=== PATIENT | male | born 1985 | race Caucasian/White ===

== ENCOUNTER → 2017-01-14 | Outpatient (CLI) | payer OTHER, SELFPAY ==
--- NOTE | 2017-01-14 17:29 | REP ---
Posterior fossa and brain IAC MRI study without and with IV gadolinium: History: History of left ear sensorineural hearing loss. Comparison radiographs of the sinuses are from June 28, 2015. Gadolinium enhancement dose: 18 ml of intravenous ProHance. MR technique: Axial and coronal T1 and T2-weighted scans include spin echo, turbo spin echo, FLAIR, and diffusion weighted scans. 3-D gradient echo sequences are included and post gadolinium enhanced T1 fat sat axial and coronal scans are included. MRI findings: No bony calvarial lesion is seen. There is no MR evidence of significant paranasal sinus disease. No intraorbital abnormality is seen. The internal auditory canals are normal and symmetric in size. 7th and 8th nerves are unremarkable. No other cranial nerve abnormality is appreciated. There is no evidence of CP angle cistern mass. No intercanalicular or extra canalicular abnormal gadolinium enhancement is seen. Enhancement is seen in normal vessels. No abnormal gadolinium enhancement is appreciated. Diffusion weighted scans show no evidence to suggest acute ischemia. Impression: Unremarkable IAC, posterior fossa, and brain MRI study without and with IV gadolinium. Signed by Noman Scott MD 01/14/2017 05:49 P
== END ==
LOC: M RAD 14:55
PROVIDERS: ATTEND Otolaryngology
DX: H90.5 Unspecified sensorineural hearing loss (principal)
CPT/HCPCS: 70553; A9576

== ENCOUNTER → 2020-12-18 | Outpatient (CLI) | payer OTHER ==
[2020-12-18 19:19] LABS: FREE T4 0.99 NG/DL (0.76-1.46); THYROID STIMULATING HORMONE 1.68 uIU/ML (0.358-3.740)
== END ==
LOC: M LAB 16:38
PROVIDERS: ATTEND Internal Medicine Gastroenterology
DX: K58.2 Mixed irritable bowel syndrome (principal)

== ENCOUNTER → 2021-04-07 | Outpatient (CLI) | payer OTHER ==
[~2021-04-07] MED LIST: DICY20TA11 PO
== END ==
LOC: M LABSMTC 09:33
PROVIDERS: ATTEND Anesthesiology
DX: Z01.812 Encounter for preprocedural laboratory examination (principal); Z20.822 Contact with and (suspected) exposure to COVID-19

== ENCOUNTER 2021-04-11 10:19 | Day surgery (SDC) | payer OTHER ==
[~2021-04-11] VITALS: Ht 180.3 cm; Wt 99.3 kg
[~2021-04-11 10:19] MED LIST changes: +NS 1,000 ML IV ONE
--- OUTSIDE RECORDS SUMMARY | 2021-04-11 10:23 | CCD | Continuity of Care Document ---
Author Author Jonah VILLA [facility] Organization Unknown Address [address] [facility] [address] [place] [address] Phone [phone] Problems Active Problems Provider Date Allergic rhinitis Melva Santillan FNP-C Onset: Social History Type Date Description Comments Sex Unknown Tobacco Use Start: Unknown End: Unknown Former Cigarette Smo ker 1/2 Pack Daily ETOH Use Consumes 4 beers per week Recreational Drug Use Denies Drug Use Tobacco Use Start: Unknown Light tobacco smoker (10 or fewe r cigarettes/day) Allergies, Adverse Reactions, Alerts Description No Known Drug Allergies Medications Active Medications SIG Qnty Indications Ordering Provide r Date Hydrocortisone 2.5% Ointment apply topically hemorrhoids twice daily X 14 days 30gm Fanny Bolden FNP-BC 09/04/2020 Zyrtec Allergy 10mg Tablets 1 by mouth every night at bedtime 30tabs Fanny Villa FNP-BC Ibuprofen 200mg Tablets 3 tabs by mouth qd OTC Unknown Immunizations Description No Information Available Vital Signs Date Vital Result Comment 01/07/2021 11:39am BP Systolic 124 mmHg BP Diastolic 66 mmHg Body Temperature 97.8 F Heart Rate 95 /min Respiratory Rate 16 /min Height 68.50 inches 5'8.50" Weight 220.00 lb [place] Body Weight 154 lb BMI (Body Mass Index) 33.0 kg/m2 O2 % BldC Oximetry 98 % (AT Rest), (Room Air ) 12/30/2020 3:47pm BP Systolic 118 mmHg BP Diastolic 72 mmHg Body Temperature 97.6 F Heart Rate 94 /min Respiratory Rate 16 /min Height 68.50 inches 5'8.50" Weight 217.00 lb [place] Body Weight 154 lb BMI (Body Mass Index) 32.5 kg/m2 O2 % BldC Oximetry 97 % Results Test Acquired Date Facility Test Result H/L Range Note Gastrointestinal (GI) Panel 12/18/2020 [facility] dical (Interface) [phone] Gastrointestinal (GI) Panel This Gastrointes <SEE NOTE > 1 Laboratory test finding 12/18/2020 [facility] (Interface) [phone] Pancreatic Elastase Stool 309 Normal >200 2 Calprotectin Stool 20 ug/g Normal 0-120 3 Laboratory test [facility] [phone] Immunoglobulin A 149.0 mg/dL Normal 70-400 FT4&TSH Panel 12/18/2020 [facility] (I nterface) [phone] Thyroid Stimulating Hormone 1.680 uIU/ML Normal 0. 358-3.740 Free T4 0.99 ng/dL Normal 0.76-1.46 Laboratory test finding [facility] [phone] Tissue Transglutaminase IgA <2 U/mL Normal 0-3 4 Laboratory test finding 09/04/2020 [facility] Occult Blood NEGATIVE Neg 1 This Gastrointestinal PCR Pa wendy detects the following bacteria, parasites and viruses: Campylobacter (jejuni, coli and upsaliensis), Clostridium difficile (toxin A/B), Plesiomonas shigelloides, Salmonella, Yersinia enterocolitica, Vibrio (parahaemolyticus, vulnificus and cholerae), Vibrio clolerae, Enteroaggregative E. coli (EAEC), Enteropathogenis E. coli (EPEC), Enterotoxigenic E. coli (ETEC) it/st, Shiga-like producing E. coli (STEC) stx1/stc2, E.coli O157, Shigella/Enteroinvasive E. coli (EIEC), Cryptosporidium, Cyclospora cayetanensis, Entamoeba histolytica, Giardia lamblia, Adenovirus F 40/41, Astrovirus, Norovirus GI/GII, Rotavirus A and Sapovirus (I, II, IV, V). One negative specimen does not rule out the possibility of a parasitic infection. NEGATIVE by MULTIPLEXED NUCLEIC ACID PCR 2 Result Units: ug Elast./g Severe Pancreatic Insufficiency: <100 Moderate Pancreatic Insufficiency: 100 - 200 Normal: >200 3 Concentration Interpreta tion Follow-Up <16 - 50 ug/g Normal None >50 -120 ug/g Borderline Re-evaluate in 4-6 weeks >120 ug/g Abnormal Repeat as clinically indicated Performed at: [facility] [id number] Offal Worker: Elina Maya MD, Phone: [phone] Negative 0 - 3 Weak Positive 4 - 10 Positive >10 . Tissue Transglutaminase (tTG) has been identified as the endomysial antigen. Studies have demonstr- ated that endomysial IgA antibodies have over 99% specificity for gluten sensitive enteropathy. Performed at: [facility] [id number] Offal Worker: Sangeeta Hair MD, Phone: [phone] Procedures Date Code Description Status 01/07/2021 89159 Destruction Common/P lantar Warts 1-14 EX. Common Or Plantar Warts Completed 12/30/2020 46575 Office/Outpatient Established Lo w MDM 20-29 Min Completed 09/04/2020 42125 Office/Outpatient Established Mo d MDM 30-39 Min Completed Medical Devices Description No Information Available Encounters Type Date Location Provider Dx Diagnosis Office Visit 12/30/2020 3:30p [place] FNP-BC B07.9 Viral wart, unspecified Office Visit 09/04/2020 11:15a [place] FNP-BC R19.7 Diarrhea, unspecified K59.00 Constipation, unspecified K64.8 Other hemorrhoids Assessments Date Code Description Provider 01/07/2021 B07.9 Viral wart, unspecified Fanny Villa FNP-BC 12/30/2020 B07.9 Viral wart, unspecified Fanny Villa FNP-BC 09/04/2020 R19.7 Diarrhea, unspecified Red Villa FNP-BC 09/04/2020 K59.00 Constipation, unspecified Fanny Villa FNP-BC 09/04/2020 K64.8 Other hemorrhoids Fanny Villa FNP-BC Plan of Treatment No Information Available Functional Status Description No Information Available Mental Status Description No Information Available Referrals Refer to Reason for Referral Status Appt Date Nathaniel Renner M.D. bowel issues hemorrhoids Sent 0 12/18/[address] [address] [phone]
--- OUTSIDE RECORDS SUMMARY | 2021-04-11 10:23 | CCD | Continuity of Care Document ---
Author Jonah Burkett MD Organization Unknown Address [address] [place] [address] Phone [phone] Care Team Providers Care Shake Loader Name Role Phone oRdri Linton D.O. AUTM [phone] Jaimee Morrison AUTM [phone] Problems Active Problems Provider Date Dysfunction of eustachian tube Steve Hardy II, PA-C Onset: 08/28/2013 Hypertrophy of tonsils Stvee Hardy II, PA-C Onset: 08/29/19 14 Acute sinusitis Steve Hardy II, PA-C Onset: 08/28/2013 Sensorineural hearing loss Steve Hardy II, PA-C Onset: 10/30 Social History Type Date Description Comments Sex Unknown ETOH Use Occasionally consumes alcohol Tobacco Use Start: Unknown Patient is a current smoker, smo kes every day <1/2ppd Allergies, Adverse Reactions, Alerts Active Allergies Criticality Reaction | Severity Comments Date Peanut-containing Drug Products Unable to assess criticality 06/09/2013 Medications Active Medications SIG Qnty Indications Ordering Provide r Date Miralax 17GM/Scoop Powder use as directed see dr howell colon preparation instructions 510gm K58.2 Yury Howell MD 12/18/2020 Dicyclomine HCL 20mg Tablets take 1 tablet by mouth 4 times a day as needed (1/2 hour before meal) for abdominal pain/diarrhea/spasm 60tabs K58.2 Ena Howell MD 12/18/2020 Metamucil 0.52gm Capsules 2 by mouth twice a day 120caps K58.2 Ena Howell MD 12/18/2020 Milk Of Magnesia 1200mg/15ML Suspe nsion take 45 milliliters by mouth as directed on colonoscopy prep sheet. 355ml Ena Howell MD 12/18/2020 History Medications No Active Medications Unknown - 12/18/2020 Immunizations Description No Information Available Vital Signs Date Vital Result Comment 12/18/2020 3:29pm BP Systolic 114 mmHg BP Diastolic 62 mmHg Height 71 inches 5'11" Weight 218.00 lb BMI (Body Mass Index) 30.4 kg/m2 [place] Body Weight 172 lb Weight 98.885 kg BSA (Body Surface Area) 2.19 m2 09/28/2019 9:10am Height 71 inches 5'11" Weight 220.00 lb BMI (Body Mass Index) 30.7 kg/m2 [place] Body Weight 172 lb Weight 99.792 kg BSA (Body Surface Area) 2.20 m2 Results Test Acquired Date Facility Test Result H/L Range Note Laboratory test finding 12/18/2020 [facility] [address] [place] [address] [phone] Tissue Transglutaminase IgA <2 U/mL Normal 0-3 1 Immunoglobulin A 149.0 mg/dL Normal 70-400 FT4&TSH Panel 12/18/2020 [facility] nter Main Lab [address] [place] [address] [phone] Thyroid Stimulating Hormone 1.680 uIU/ML Normal 0. 358-3.740 Free T4 0.99 ng/dL Normal 0.76-1.46 2 Gastrointestinal (GI) Panel 12/18/2020 [facility] Main Lab [address] [place] [address] [phone] Gastrointestinal (GI) Panel This Gastrointes <SEE NOTE > 3, 4 Laboratory test finding 12/18/2020 [facility] [address] [place] [address] [phone] Calprotectin Stool 20 ug/g Normal 0-120 5 Pancreatic Elastase Stool 309 Normal >200 6, 7 1 Negative 0 - 3 Weak Positive 4 - 10 Positive >10 . Tissue Transglutaminase (tTG) has been identified as the endomysial antigen. Studies have demonstr- ated that endomysial IgA antibodies have over 99% specificity for gluten sensitive enteropathy. Performed at: [address] [id number] Geothermal Operating Engineer: Sangeeta Hair MD, Phone: [phone] 2 12/22/20 ([place] Dec 22) 06:31 PM ENA HOWELL ok 3 This Gastrointestinal PCR Pa wendy detects the [...] infection. NEGATIVE by MULTIPLEXED NUCLEIC ACID PCR 4 12/22/20 ([place] Dec 22) 06:53 PM ENA HOWELL neg 5 Concentration Interpreta tion Follow-Up <16 - 50 ug/g Normal None >50 -120 ug/g Borderline Re-evaluate in 4-6 weeks >120 ug/g Abnormal Repeat as clinically indicated Performed at: [address] [id number] Geothermal Operating Engineer: Elina Maya MD, Phone: [phone] Result Units: ug Elast./g Severe Pancreatic Insufficiency: <100 Moderate Pancreatic Insufficiency: 100 - 200 Normal: >200 7 02/27/21 ([place] Feb 27) 04:14 PM ENA HOWELL normal Procedures Date Code Description Status 12/18/2020 86347 Office/Outpatient New Moderate M DM 45-59 Minutes Completed Medical Devices Description No Information Available Encounters Type Date Location Provider Dx Diagnosis Office Visit 12/18/2020 3:15p [facility] Ena Howell MD K58.2 Mixed irritable bowel syndro me K62.5 Hemorrhage of anus and rectu m Assessments Date Code Description Provider 12/18/2020 K58.2 Mixed irritable bowel syndrome D kamryn Howell MD 12/18/2020 K62.5 Hemorrhage of anus and rectum Da grace Howell MD Plan of Treatment Future Appointment(s):* 04/11/2021 1:05 pm - Ena Howell MD at [facility] 12/18/2020 - Ena Howell MD* K58.2 Mixed irritable bowel syndrome * K62.5 Hemorrhage of anus and rectum * * New Medication:* Miralax 17 GM/Scoop * Dicyclomine HCL 20 mg * Metamucil 0.52 gm * New Orders:* Colonoscopy, Ordered: 12/18/20 * Comments:* has long hx of hemorrhoidal problems.Has several days of normal bowels, then has freequent stools, then has bleeding with stool frequency/frequent wiping. * Recommendations:* Fiber supplementation to reduce stool frequency Trial on dicyclomine ofr probable IBS contributing. Colonoscopy to assess. Dep on colonoscopy, consider surgical repair of hemorrhoids Functional Status Description No Information Available Mental Status Description No Information Available Referrals Refer to Reason for Referral Status Appt Date Ena Howell M.D. CONSTIPATION/DIARRHEA Scheduled 12/18 [facility], Gastroenterology [address] [place] [address], [address] [place], [place] [id number] [phone]
--- OUTSIDE RECORDS SUMMARY | 2021-04-11 10:24 | CCD ---
Author Author [facility] Organization [facility] Address Unknown Phone Unavailable Care Team Providers Care Intensive Care Nurse Name Role Phone ENA UMAÑA MD Unavailable Unavailable ENA UMAÑA MD Unavailable Unavailable ENA UMAÑA MD Unavailable Unavailable ENA UMAÑA MD Unavailable Unavailable ENA UMAÑA MD Unavailable Unavailable ENA UMAÑA MD Unavailable Unavailable ENA UMAÑA MD Unavailable Unavailable ENA UMAÑA MD Unavailable Unavailable ENA UMAÑA MD Unavailable Unavailable ENA UMAÑA MD Unavailable Unavailable ENA UMAÑA MD Unavailable Unavailable ENA UMAÑA MD Unavailable Unavailable ENA UMAÑA MD Unavailable Unavailable ENA UMAÑA MD Unavailable Unavailable ENA UMAÑA MD Unavailable Unavailable ENA UMAÑA MD Unavailable Unavailable ENA UMAÑA MD Unavailable Unavailable ENA UMAÑA MD Unavailable Unavailable ENA UMAÑA MD Unavailable Unavailable ENA UMAÑA MD Unavailable Unavailable REINDL, ENA HINKLE Unavailable Unavailable REINDL, ENA HINKLE Unavailable Unavailable REINDL, ENA HINKLE Unavailable Unavailable REINDL, ENA HINKLE Unavailable Unavailable REINDL, ENA HINKLE Unavailable Unavailable REINDL, ENA HINKLE Unavailable Unavailable REINDL, ENA HINKLE Unavailable Unavailable REINDL, ENA HINKLE Unavailable Unavailable REINDL, ENA HINKLE Unavailable Unavailable REINDL, ENA HINKLE Unavailable Unavailable REINDL, ENA HINKLE Unavailable Unavailable REINDL, ENA HINKLE Unavailable Unavailable REINDL, ENA HINKLE Unavailable Unavailable REINDL, ENA HINKLE Unavailable Unavailable REINDL, ENA HINKLE Unavailable Unavailable REINDL, ENA HINKLE Unavailable Unavailable REINDL, ENA HINKLE Unavailable Unavailable REINDL, ENA HINKLE Unavailable Unavailable REINDL, ENA HINKLE Unavailable Unavailable REINDL, ENA HINKLE Unavailable Unavailable REINDL, ENA HINKLE Unavailable Unavailable REINDL, ENA HINKLE Unavailable Unavailable Rounds, [facility] Unavailable Unavailable Rounds, [facility] Unavailable Unavailable Rounds, [facility] Unavailable Unavailable Rounds, [facility] Unavailable Unavailable Rounds, [facility] Unavailable Unavailable Rounds, [facility] Unavailable Unavailable Rounds, [facility] Unavailable Unavailable Rounds, [facility] Unavailable Unavailable Rounds, [facility] Unavailable Unavailable Rounds, [facility] Unavailable Unavailable Rounds, [facility] Unavailable Unavailable Rounds, [facility] Unavailable Unavailable Rounds, [facility] Unavailable Unavailable Rounds, [facility] Unavailable Unavailable Rounds, [facility] Unavailable Unavailable Rounds, [facility] Unavailable Unavailable Rounds, [facility] Unavailable Unavailable Rounds, [facility] Unavailable Unavailable Rounds, [facility] Unavailable Unavailable Rounds, [facility] Unavailable Unavailable Rounds, [facility] Unavailable Unavailable Rounds, [facility] Unavailable Unavailable Rounds, [facility] Unavailable Unavailable Rounds, [facility] Unavailable Unavailable Rounds, [facility] Unavailable Unavailable Rounds, [facility] Unavailable Unavailable Rounds, [facility] Unavailable Unavailable Rounds, [facility] Unavailable Unavailable Rounds, [facility] Unavailable Unavailable Rounds, [facility] Unavailable Unavailable Rounds, [facility] Unavailable Unavailable Rounds, [facility] Unavailable Unavailable Rounds, M [facility] Unavailable Unavailable Rounds, [facility] Unavailable Unavailable Rounds, [facility] Unavailable Unavailable Rounds, M [facility] Unavailable Unavailable Rounds, M [facility] Unavailable Unavailable Rounds, [facility] Unavailable Unavailable Rounds, M [facility] Unavailable Unavailable Rounds, [facility] Unavailable Unavailable Rounds, [facility] Unavailable Unavailable Rounds, [facility] Unavailable Unavailable Rounds, [facility] Unavailable Unavailable Rounds, [facility] Unavailable Unavailable Rounds, M [facility] Unavailable Unavailable Rounds, M [facility] Unavailable Unavailable Rounds, M [facility] Unavailable Unavailable Rounds, M [facility] Unavailable Unavailable Rounds, M [facility] Unavailable Unavailable Rounds, M [facility] Unavailable Unavailable Rounds, M [facility] Unavailable Unavailable Rounds, M [facility] Unavailable Unavailable Rounds, M [facility] Unavailable Unavailable Rounds, M [facility] Unavailable Unavailable Rounds, M [facility] Unavailable Unavailable Rounds, M [facility] Unavailable Unavailable Rounds, M [facility] Unavailable Unavailable Rounds, M [facility] Unavailable Unavailable Rounds, M [facility] Unavailable Unavailable Rounds, M [facility] Unavailable Unavailable Rounds, [facility] Unavailable Unavailable Rounds, [facility] Unavailable Unavailable Rounds, [facility] Unavailable Unavailable Re-disclosure Warning The records that you are about to access may contain information from federally-assisted alcohol or drug abuse programs. If such information is present, then the following federally mandated warning applies: This information has been disclosed to you from records protected by federal confidentiality rules (42 CFR part 2). The federal rules prohibit you from making any further disclosure of this information unless further disclosure is expressly permitted by the written consent of the person to whom it pertains or as otherwise permitted by 42 CFR part 2. A general authorization for the release of medical or other information is NOT sufficient for this purpose. The Federal rules restrict any use of the information to criminally investigate or prosecute any alcohol or drug abuse patient.The records that you are about to access may contain highly sensitive health information, the redisclosure of which is protected by Article 27-F of the [facility] Public Health law. If you continue you may have access to information: Regarding HIV / AIDS; Provided by facilities licensed or operated by the [facility] Office of Mental Health; or Provided by the [facility] Office for People With Developmental Disabilities. If such information is present, then the following [facility] mandated warning applies: This information has been disclosed to you from confidential records which are protected by state law. State law prohibits you from making any further disclosure of this information without the specific written consent of the person to whom it pertains, or as otherwise permitted by law. Any unauthorized further disclosure in violation of state law may result in a fine or longterm sentence or both. A general authorization for the release of medical or other information is NOT sufficient authorization for further disc losure. Family History Family Member Name Family Member Gender Family Member Status Date o f Status Description Data Source(s) Unknown Condition [facility] Unknown Condition [facility] Unknown Condition [facility] Unknown Unknown Problem [facility] ([facility], ) Encounters Encounter Providers Location Date Indications Data Source(s ) Outpatient Attender: KUSHAL Villa NP [place] [facility] 12/30/2020 0 3:30:00 PM EDT [facility] Outpatient Attender: ENA Galindo/Mahsa/Reed/Sanket heaton 12/18/2020 03:15:00 PM EDT [facility] ([facility], ) Outpatient 09/30/2020 05:15:00 PM EDT [facility] Outpatient 09/23/2020 05:30:00 PM EDT - 021 06:11:38 PM EDT [facility] Patient discharged. Outpatient Attender: KUSHAL Villa NP [place] [facility] 09/04/2020 1 1:15:00 AM EDT [facility] ([facility] Outpatient 08/12/2020 02:15:00 PM EDT [facility] Outpatient 08/12/2020 02:15:00 PM EDT [facility] Outpatient 08/08/2020 02:45:00 PM EST [facility] Outpatient 08/08/2020 01:00:00 PM EST [facility] Outpatient 03/11/2020 03:40:00 PM EDT [facility] Outpatient 03/04/2020 05:00:00 PM EDT [facility] Emergency 12/19/2019 09:11:00 PM EDT - 12/19/2019 10:50:00 PM EDT [facility] Patient discharged. Medications Medication Brand Name Start Date Product Form Dose Route Admi nistrative Instructions Pharmacy Instructions Status Indications Reaction Description Data Source(s) POLYETHYLENE GLYCOL 3350 142 MG/ML Oral Solution [Miralax] M iralax 12/18/2020 12:00:00 AM EDT active M [facility]ENT ([facility], ) Dicyclomine Hydrochloride 20 MG Oral Tablet Dicyclomine HCL 12/18/2020 12:00:00 AM EDT ORAL active [facility] ([facility], ) 0.52 gram 12/18/2020 12:00:00 AM EDT capsule 120 TAKE TWO CAPSULES BY MOUTH TWICE A DAY TAKE TWO CAPSULES BY MOUTH TWICE A DAY SOLD: 12/18/2020 Last [facility] Magnesium Hydroxide 80 MG/ML Oral Suspension Milk Of Magnesi a 12/18/2020 12:00:00 AM EDT ORAL active M EDENT ([facility], ) No Active Medications 12/18/2020 12:00:00 AM EDT completed [facility] ([facility], ) Psyllium 525 MG Oral Capsule [Metamucil] Metamucil 12/18/2020 12 :00:00 AM EDT ORAL active [facility] ([facility], ) 17 gram/dose 12/18/2020 12:00:00 AM EDT powder [address] UMAÑA PREPERATION INSTRUCTIONS USE DIRECTED. SEE DR. UMAÑA PREPERAT ION INSTRUCTIONS SOLD: 12/18/2020 Last Drug s 20 mg 12/18/2020 12:00:00 AM EDT tablet 60 TAKE 1 TABLET FOUR TIMES A DAY NEEDED (1/2 HOUR BEFORE MEALS) FOR ABDOMINAL PAIN/ DIARRHEA/ SPASMS TAKE 1 TABLET FOUR TIMES A DAY NEEDED (1/2 HOUR BEFORE MEALS) FOR ABDOMINAL PAIN/ DIARRHEA/ SPASMS SOLD: 12/23/2020 [facility] Aspirin 81 MG Delayed Release Oral Tablet aspirin stefano yed-release 81 mg tablet aspirin delayed-release 81 mg tablet 09/23/2020 12:00:00 AM EDT 81 mg Oral active Coronary artery disease invo lving [place] coronary artery of [place] heart without angina pectoris Take 1 Tab by mouth daily. Wilfredo davila [facility] Coronary artery disease involving [place] coronary artery of [place] heart without angina pectoris Amlodipine 5 MG Oral Tablet amLODIPine (NORVASC) 5 mg tablet amLODIPine (NORVASC) 5 mg tablet 09/23/2020 12:00:00 AM EDT 5 mg Oral active Essential hypertension Take 1 Tab by mouth daily. [facility] Essential hypertension 24 HR metoprolol succinate 50 MG Extende d Release Oral Tablet metoprolol succinate (Toprol XL) 50 mg XL tablet metoprolol succinate (Toprol XL) 50 mg X L tablet 09/23/2020 12:00:00 AM EDT 50 mg Oral activ e Essential hypertensionCoronary artery disease involving [place] coronary artery of [place] heart without angina pectoris Take 1 Tab by mouth daily. [facility] Essential hypertension Coronary artery disease involving [place] coronary artery of [place] heart without angina pectoris atorvastatin 80 MG Oral Tablet atorvastatin (LIPITOR) 80 mg tablet atorvastatin (LIPITOR) 80 mg tablet 09/23/2020 12:00:00 AM EDT 80 mg Oral active Mixed hyperlipidemia Take 1 Tab by mouth daily. [facility] Mixed hyperlipidemia Hydrocortisone 0.025 MG/MG Topical Ointment Hydrocortisone 09/04/2020 12:00:00 AM EDT active [facility] ([facility] 24 HR metoprolol succinate 100 MG Extend ed Release Oral Tablet metoprolol succinate (TOPROL-XL) 100 mg tablet metoprolol succinate (TOPROL-XL) 100 mg tablet 02/20/2020 12:00:00 AM EDT activ e Essential hypertensionCoronary artery disease involving [place] coronary artery of [place] heart without angina pectoris TAKE 1 TABLET BY MOUTH EVERY D AY [facility] Essential hypertension Coronary artery disease involving [place] coronary artery of [place] heart without angina pectoris Insurance Providers Payer name Policy type / Coverage type Policy ID Covered alliance party ID Covered alliance party's relationship to figueroa Policy Figu[place]a Plan Information MOTHER EZEQUIEL UNAVAILABLE Patient UNAVAILABLE BCBS OF [place] [id number] Patient [id number] BLUE CROSS OUT OF STATE [id number] Patient [id number] [facility] [id number] SP [id number] [facility]UN[facility] [id number] SP [id number] [facility] COMMUNITY PLAN MCDO [id number] SP [id number] SELF PAY ONLY [id number] SP [id number] [facility] COMMUNITY PLAN MCDO [id number] SP [id number] [facility] [id number] SP [id number] [facility] COMMUN[facility] [id number] SP [id number] ROGELIO [id number] ROGELIO [id number] ROGELIO [id number] 200 [place] ROGELIO [id number] ROGELIO [id number] 200 GENERIC COMMERCIAL [id number] N [id number] GENERIC COMMERCIAL Commerical [id number] SELF PAY Self Pay [id number] TIFFANI GARZA [id number] [place] [employer] [id number] [place] [employer] Commerical [id number] BLUE CROSS BLUE SHIELD -O/P [id number] [employer] COMMUNITY PLAN MCDO [id number] SP [id number] ROGELIO [id number] SP [id number] ROGELIO [id number] SP [id number] INDEPENDENCE [id number] U [id number] [place]BS [place] WATN PPO 302/307 [id number] SP [id number] [facility] [id number] SP [id number] UNHC AMERICHOICE XIX O [id number] 18 [id number] UNHC COMMUNITY PLAN XIX -RECURRING [id number] 18 [id number] UNHC COMMUNITY PLAN XIX [id number] 18 [id number] [facility] Ernestina/MCR Medigap Part B [id number] Self [id number] [facility] Ernestina/MCR Health Maintenance Organization (HMO) [id number] Self [id number] [facility] Medigap Part B [id number] Self [id number] [facility] O [id number] S [id number] [facility] Ernestina/MCR Medigap Part B [id number] Self [id number] [facility] Health Maintenance Organization (HMO) [id number] Self [id number] GENERIC COMMERCIAL [id number] N [id number] [employer] [employer] [id number] Problems, Conditions, and Diagnoses Code Display Name Description Problem Type Effective Dates Data Source(s) E78.2 Mixed hyperlipidemia Mixed hyperlipidemia Diagnosis 09/23/2020 05:39:09 PM EDT [facility] I10 Essential (primary) hypertension Essential (primary) h ypertension Diagnosis 09/23/2020 05:39:09 PM EDT [facility] Surgeries/Procedures Procedure Description Date Indications Data Source(s) Destruction Common/Plantar Warts 1-14 EX. Common Or Plantar Warts 01/07/2021 12:00:00 AM EDT [facility] ([facility] OFFICE OUTPATIENT VISIT 15 MINUTES 12/30/2020 12:00:00 AM EDT [facility] ([facility] OFFICE OUTPATIENT NEW 45 MINUTES 12/18/2020 12:00:00 A M EDT [facility] ([facility], ) AMB POC EKG ROUTINE W/ 12 LEADS, INTER & REP <td><cont ent ID="[id number]">AMB POC EKG ROUTINE W/ 12 LEADS, INTER & REP</content></td><td>Routine</td><td>09/23/2020 5:47 PM EDT</td><td><paragraph>Coronary artery disease involving [place] coronary artery of [place] heart without angina pectoris</paragraph><paragraph>Essential hypertension</paragraph></td><td></td> 09/23/2020 05:47:00 PM EDT Essential hypertensionCoronary artery disease involving [place] coronary artery of [place] heart without angina pectoris [facility] Essential hypertension Coronary artery disease involving [place] coronary artery of [place] heart without angina pectoris OFFICE OUTPATIENT VISIT 25 MINUTES 09/04/2020 12:00:00 AM EDT [facility] ([facility] Results ID Date Data Source [id number] 12/18/2020 10:15:00 PM EDT [facility] ([facility] Name Value Range Interpretation Code Description Data Vivian rce(s) Supporting Document(s) Elastase.pancreatic [Mass/mass] in Stool 309 Normal (applies to non-numeric results) [facility] ([facility] ) <content>Result Units: ug Elast./g</cont ent>
<content>Severe Pancreatic Insufficiency: <100</content>
<content>Moderate Pancreatic Insufficiency: 100 - 200</content>
<content>Normal: >200</content>
<content></content> Calprotectin [Mass/mass] in Stool 20 ug/g 0-120 Normal (applies to non-numeric results) [facility] ([facility] ) <content>Concentration Interpretatio n Follow-Up</content>
<content><16 - 50 ug/g Normal None</content>
<content>>50 -120 ug/g Borderline Re-evaluate in 4-6 weeks</content>
<content>>120 ug/g Abnormal Repeat as clinically</content>
<content>indicated</content>
<content>Performed at: [facility]</content>
<content>[address] [place] [id number]</content>
<content>Dining Service Inspector: Elina Maya MD, Phone: [phone]</content>
<content></content> ID Date Data Source [id number] 12/18/2020 10:15:00 PM EDT [facility] ([facility] Name Value Range Interpretation Code Description Data Vivian rce(s) Supporting Document(s) Gastrointestinal (GI) Panel Laboratory test result [facility] ([facility] This Gastrointestinal PCR Panel detects the following bacteria, parasites and viruses: [...] infection. NEGATIVE by MULTIPLEXED NUCLEIC ACID PCR ID Date Data Source [id number] 12/18/2020 04:52:00 PM EDT [facility]) Name Value Range Interpretation Code Description Data Vivian rce(s) Supporting Document(s) Free T4 0.99 ng/dL 0.76-1.46 Normal (applies to non-numeric resul ts) [facility] ([facility]) 12/22/20 (WedDec 22) 06:31 PM ENA BRO ok Thyroid Stimulating Hormone 1.680 uIU/ML 0.358-3.740 Norm al (applies to non- numeric results) [facility]) ID Date Data Source [id number] 12/18/2020 04:52:00 PM EDT [facility] ([facility]) Name Value Range Interpretation Code Description Data Vivian rce(s) Supporting Document(s) Tissue transglutaminase IgA Ab [Units/volume] in Serum Labor atory test result 0-3 Normal (applies to non-numeric results) [facility] ([facility]) Negative 0 - 3 Weak Positive 4 - 10 Positive >10 . Tissue Transglutaminase (tTG) has been identified as the endomysial antigen. Studies have demonstr- ated that endomysial IgA antibodies have over 99% specificity for gluten sensitive enteropathy. Performed at: [facility] [address] [id number] Dining Service Inspector: Sangeeta Hair MD, Phone: [phone] IgA [Mass/volume] in Serum or Plasma 149.0 mg/dL 70-400 Normal (applies to non- numeric results) [facility] ([facility], ) ID Date Data Source [id number] 12/18/2020 04:52:00 PM EDT [facility] ([facility] Name Value Range Interpretation Code Description Data Vivian rce(s) Supporting Document(s) Tissue transglutaminase IgA Ab [Units/volume] in Serum Labor atory test result 0-3 Normal (applies to non-numeric results) [facility] ([facility] Negative 0 - 3 Weak Positive 4 - 10 Positive >10 . Tissue Transglutaminase (tTG) has been identified as the endomysial antigen. Studies have demonstr- ated that endomysial IgA antibodies have over 99% specificity for gluten sensitive enteropathy. Performed at: RN - [facility] [address] [id number] Dining Service Inspector: Sangeeta Hair MD, Phone: [phone] ID Date Data Source [id number] 12/18/2020 04:52:00 PM EDT [facility] ([facility] Name Value Range Interpretation Code Description Data Vivian rce(s) Supporting Document(s) Free T4 0.99 ng/dL 0.76-1.46 Normal (applies to non-numeric resul ts) [facility] ([facility] Thyroid Stimulating Hormone 1.680 uIU/ML 0.358-3.740 Norm al (applies to non- numeric results) [facility] ([facility] ) ID Date Data Source [id number] 12/18/2020 04:52:00 PM EDT [facility] ([facility] Name Value Range Interpretation Code Description Data Vivian rce(s) Supporting Document(s) IgA [Mass/volume] in Serum or Plasma 149.0 mg/dL 70-400 Normal (applies to non- numeric results) [facility] ([facility] ) ID Date Data Source [id number] 12/18/2020 08:52:00 AM EDT [facility] ([facility]) Name Value Range Interpretation Code Description Data Vivian rce(s) Supporting Document(s) Calprotectin [Mass/mass] in Stool 20 ug/g 0-120 Normal (applies to non-numeric results) [facility] ([facility]) <content>Concentration Interpretatio n Follow-Up</content>
<content><16 - 50 ug/g Normal None</content>
<content>>50 -120 ug/g Borderline Re-evaluate in 4-6 weeks</content>
<content>>120 ug/g Abnormal Repeat as clinically</content>
<content>indicated</content>
<content>Performed at: [facility]</content>
<content>[address] [place] [id number]</content>
<content>Dining Service Inspector: Elina Maya MD, Phone: [phone]</content>
<content></content> Elastase.pancreatic [Mass/mass] in Stool 309 Normal (applies to non-numeric results) [facility] ([facility]) <content>Result Units: ug Elast./g</cont ent>
<content>Severe Pancreatic Insufficiency: <100</content>
<content>Moderate Pancreatic Insufficiency: 100 - 200</content>
<content>Normal: >200</content>
<content></content> ID Date Data Source [id number] 12/18/2020 08:52:00 AM EDT [facility] ([facility]) Name Value Range Interpretation Code Description Data Vivian rce(s) Supporting Document(s) Gastrointestinal (GI) Panel Laboratory test result [facility] ([facility]) This Gastrointestinal PCR Panel detects the following bacteria, parasites and viruses: [...] infection. NEGATIVE by MULTIPLEXED NUCLEIC ACID PCR ID Date Data Source [id number] 09/04/2020 11:44:00 AM EDT JOCELINE ([facility] Name Value Range Interpretation Code Description Data Vivian rce(s) Supporting Document(s) Occult Blood Laboratory test result JOCELINE ([facility] [place] [facility] Procedure Social History Code Duration Value Status Description Data Source(s ) Alcohol intake 09/23/2020 12:00:00 AM EDT Current non-d marina of alcohol (finding) completed Current non-drinker of alcohol (finding) [employer] Tobacco use and exposure 09/23/2020 12:00:00 AM EDT Never used co mpleted Never used [employer] Cigarettes smoked current (pack per day) - Reported 09/24/19 12:00:00 AM EDT UNK completed [facility] Smoking 09/23/2020 12:00:00 AM EDT Former smoker completed Former smoker [facility] Vital Signs ID Date Data Source UNK Name Value Range Interpretation Code Description Data Source(s) Body weight 220.00 [lb_av] 220.00 [lb_av] MAGALYS [place] ([facility] [place] body weight 154 [lb_av] 154 [lb_av] MAGALYS [place] ([facility] [place] [facility] Body mass index (BMI) [Ratio] 33.0 kg/m2 33.0 k g/m2 JOCELINE ([facility] Oxygen saturation in Arterial blood by Pulse oximetry 98 % 98 % JOCELINE ([facility] (AT Rest), (Room Air) Systolic blood pressure 124 mm[Hg] 124 mm[Hg] M EDENT ([facility] Diastolic blood pressure 66 mm[Hg] 66 mm[Hg] MEDENT ([facility] Body temperature 97.8 [degF] 97.8 [degF] MEDENT ([facility] Heart rate 95 /min 95 /min MEDENT ([facility] Respiratory rate 16 /min 16 /min MEDENT ( [facility] Body height 68.50 [in_i] 68.50 [in_i] MEDENT ([facility] 5'8.50" Systolic blood pressure 118 mm[Hg] 118 mm[Hg] M EDENT ([facility] Diastolic blood pressure 72 mm[Hg] 72 mm[Hg] MEDENT ([facility] Body temperature 97.6 [degF] 97.6 [degF] MEDENT ([facility] Heart rate 94 /min 94 /min MEDENT ([facility] Respiratory rate 16 /min 16 /min MEDENT ( [facility] Body height 68.50 [in_i] 68.50 [in_i] MEDENT ([facility] 5'8.50" Body weight 217.00 [lb_av] 217.00 [lb_av] MEDEN T ([facility] [place] body weight 154 [lb_av] 154 [lb_av] MEDEN T ([facility] Body mass index (BMI) [Ratio] 32.5 kg/m2 32.5 k g/m2 MEDENT ([facility] Oxygen saturation in Arterial blood by Pulse oximetry 97 % 97 % MEDENT ([facility] Diastolic blood pressure 62 mm[Hg] 62 mm[Hg] MEDENT ([facility], ) Body height 71 [in_i] 71 [in_i] MEDENT ([facility], ) 5'11" Systolic blood pressure 114 mm[Hg] 114 mm[Hg] M EDENT ([facility]) Body weight 218.00 [lb_av] 218.00 [lb_av] MEDEN T ([facility]) Body mass index (BMI) [Ratio] 30.4 kg/m2 30.4 k g/m2 MEDENT ([facility]) [place] body weight 172 [lb_av] 172 [lb_av] MEDEN T ([facility]) Body weight 98.885 kg 98.885 kg MEDENT ([facility]) Body surface area Derived from formula 2.19 m2 2.19 m2 [facility] ([facility]) Systolic blood pressure 190 mm[Hg] 190 mm[Hg] B [facility] Diastolic blood pressure 120 mm[Hg] 120 mm[Hg] [facility] Heart rate 102 /min 102 /min [facility] Body temperature 36.44 Flavia 36.44 Flavia [facility] Body weight 120.657 kg 120.657 kg [facility] Body mass index (BMI) [Ratio] 41.66 kg/m2 41.66 kg/m2 [facility] Systolic blood pressure 120 mm[Hg] 120 mm[Hg] M EDENT ([facility] Heart rate 94 /min 94 /min MEDENT ([facility] Respiratory rate 16 /min 16 /min MEDENT ( [facility] Body height 68.50 [in_i] 68.50 [in_i] MEDENT ([facility] 5'8.50" Body weight 220.00 [lb_av] 220.00 [lb_av] MEDEN T ([facility] [place] body weight 154 [lb_av] 154 [lb_av] MEDEN T ([facility] Body mass index (BMI) [Ratio] 33.0 kg/m2 33.0 k g/m2 MEDENT ([facility] Oxygen saturation in Arterial blood by Pulse oximetry 98 % 98 % MEDADITYA ([facility] [place] [facility] Diastolic blood pressure 70 mm[Hg] 70 mm[Hg] JOCELINE ([facility] [place] [facility] Body temperature 97.3 [degF] 97.3 [degF] JOCELINE ([facility] [place] [facility] Patient Treatment Plan of Care Planned Activity Planned Date Details Description Data Source (s) Aspirin 81 MG Delayed Release Oral Tablet 09/23/2020 12:00:00 AM ED T [facility] atorvastatin 80 MG Oral Tablet 09/23/2020 12:00:00 AM EDT [facility] 24 HR metoprolol succinate 50 MG Extended Release Oral Tablet 09/23/2020 12:00:00 AM EDT [facility] Amlodipine 5 MG Oral Tablet 09/23/2020 12:00:00 AM EDT [facility] 24 HR metoprolol succinate 100 MG Extended Release Ora l Tablet 02/20/2020 12:00:00 AM EDT [facility]
[2021-04-11] MEDS ORDERED: propofoL 500 MG/50 ML VIAL As Ordered ONE (11:48)
[2021-04-11] MEDS ORDERED: LIDOCAINE 2% 100MG/5ML SDV (FOR ANES.) As Ordered ONE (11:48)
--- NOTE | 2021-04-11 12:06 | ROOR ---
Patient Name: Jonah Camargo Procedure Date: 04/11/2021 11:42 AM Date of : 1985 Age: 36 Room: [facility] Gender: Male Note Status: Finalized Procedure: Colonoscopy Indications: Hematochezia, prolapsing and bleeding hemorrhoids, Change in bowel habits Providers: Nathaniel Renner MD Referring MD: JOANN REIS DO Requesting Provider: Medicines: Monitored Anesthesia Care Complications: No immediate complications. Procedure: Pre-Anesthesia Assessment: - The heart rate, respiratory rate, oxygen saturations, blood pressure, adequacy of pulmonary ventilation, and response to care were monitored throughout the procedure. The Colonoscope was introduced through the anus and advanced to 10 cm into the ileum. The colonoscopy was performed without difficulty. The patient tolerated the procedure well. The quality of the bowel preparation was good. Findings: The perianal and digital rectal examinations were normal. Prolapsed internal hemorrhoids were found during retroflexion. The hemorrhoids were medium-sized and large. The exam was otherwise normal throughout the examined colon. The terminal ileum appeared normal. Biopsies for histology were taken with a cold forceps for evaluation of microscopic colitis. Impression: - Moderate to large prolapsed internal hemorrhoids. - The colon and examined portion of the ileum are otherwise normal. - Biopsies were taken with a cold forceps for evaluation of microscopic colitis. Recommendation: - Use fiber, for example Citrucel, Fibercon, Konsyl or Metamucil. - Miralax 1 capful (17 grams) in 8 ounces of water PO daily. - Refer to a surgeon at appointment to be scheduled. - (I will make referral today for you to see a surgeon) Procedure Code(s): --- Professional --- 79712, Colonoscopy, flexible; with biopsy, single or multiple Diagnosis Code(s): --- Professional --- R19.4, Change in bowel habit K92.1, Melena (includes Hematochezia) K64.8, Other hemorrhoids CPT copyright 2019 [employer]. All rights reserved. The codes documented in this report are preliminary and upon weigher and mixer review may be revised to meet current compliance requirements. Nathaniel Renner MD Nathaniel Renner MD 04/11/2021 12:06:16 PM Electronically signed by Nathaniel Renner MD Number of Addenda: 0 Note Initiated On: 04/11/2021 11:42 AM Estimated Blood Loss: Estimated blood loss: none.
[2021-04-11 12:20] VITALS: BP 136/80
== END 2021-04-11 12:55 | disposition home or self-care (01) ==
LOC: M OPP 10:19
PROVIDERS: ATTEND Internal Medicine Gastroenterology
DX: K92.1 Melena (principal); K63.89 Other specified diseases of intestine; K64.8 Other hemorrhoids; R19.4 Change in bowel habit; Z79.899 Other long term (current) drug therapy; F17.210 Nicotine dependence, cigarettes, uncomplicated; Z80.1 Family history of malignant neoplasm of trachea, bronchus and lung; Z80.52 Family history of malignant neoplasm of bladder; Z80.8 Family history of malignant neoplasm of other organs or systems; Z91.010 Allergy to peanuts

== ENCOUNTER → 2023-10-20 | Outpatient (REF) | payer OTHER ==
[~2023-10-20] MED LIST changes: -DICY20TA11 PO; +DICY20TA20 PO; -NS 1,000 ML IV ONE
[2023-10-20 15:23] LABS: HEPATITIS B SURFACE ANTIGEN NEGATIVE (NEGATIVE)
[2023-10-20 15:36] LABS: HIV 1&2 SCREEN NEGATIVE (NEGATIVE)
[2023-10-20 15:45] LABS: HEPATITIS C VIRUS ABY INDEX < 0.02 INDEX (<0.8)
[2023-10-20 15:52] LABS: HEPATITIS B CORE ANTIBODY IGM NEGATIVE (NEGATIVE)
== END ==
LOC: M SFHCADAM 09:16
PROVIDERS: ATTEND Physician Assistant
DX: L40.0 Psoriasis vulgaris (principal)

== ENCOUNTER → 2024-03-22 | Outpatient (REF) | payer OTHER | LOC: M SFHCDERM 17:55 | PROVIDERS: ATTEND Physician Assistant | DX: L72.12 Trichodermal cyst (principal) ==

== ENCOUNTER → 2025-01-16 | Outpatient (CLI) | payer OTHER | LOC: M RAD 10:10 | PROVIDERS: ATTEND Internal Medicine Gastroenterology | DX: R93.3 Abnormal findings on diagnostic imaging of other parts of digestive tract (principal); R19.7 Diarrhea, unspecified ==